=== PATIENT | female | born 1990 | race Caucasian/White ===

== ENCOUNTER 2020-11-24 12:25 | Observation (INO) | payer OTHER ==
[~2020-11-24] VITALS: Ht 157.5 cm; Wt 67.6 kg
[2020-11-24 13:06] VITALS: BP 128/81
[2020-11-24] MEDS ORDERED: LEVO150 PO (13:08)
[2020-11-24] MEDS ORDERED: PREN-217 PO (13:09)
[2020-11-24 14:02] LABS: BASOPHILS % (AUTO) 0.4 % (0.0-2.0); EOSINOPHILS % (AUTO) 0.3 % (1.0-6.0); HEMATOCRIT 34.9 % (36-46); HEMOGLOBIN 11.7 g/dL (12.0-16.0); LYMPHOCYTES # (AUTO) 1.5 K/uL (1.0-4.8); LYMPHOCYTES % (AUTO) 19.5 % (22.0-44.0); MEAN CORPUSCULAR HEMOGLOBIN 29.5 pg (26.0-34.0); MEAN CORPUSCULAR HGB CONC 33.6 G/dL (31.0-37.0); MEAN CORPUSCULAR VOLUME 88 fL (80-100); MONOCYTES # (AUTO) 0.7 K/uL (0.1-1.0); MONOCYTES % (AUTO) 8.8 % (2.0-9.0); NEUTROPHILS # (AUTO) 5.6 K/uL (1.8-7.7); PLATELET COUNT (AUTO) 179 K/uL (150-450); RED BLOOD CELL COUNT(AUTO) 3.97 MIL/uL (4.00-5.20); RED CELL DISTRIBUTION WIDTH 19.5 % (11.5-14.5)
[2020-11-24 14:16] LABS: ANION GAP 12 mmol/L (8-16); CALCIUM, TOTAL 8.3 mg/dL (8.8-10.5); CARBON DIOXIDE 20 mmol/L (22-29); CHLORIDE 105 mmol/L (98-107); CREATININE 0.81 mg/dL (0.60-1.30); GLOMERULAR FILTR. RATE CALC > 60 mL/min (>60); GLUCOSE,RANDOM 94 mg/dL (70-110); POTASSIUM 3.9 mmol/L (3.5-5.1); SODIUM SERUM 137 mmol/L (136-145); UREA NITROGEN, BLOOD 12 mg/dL (7-18)
[2020-11-24 14:21] LABS: ALANINE AMINOTRANSFERASE 15 U/L (12-78); ALBUMIN 2.4 g/dL (3.4-5.0); ALKALINE PHOSPHATASE 185 U/L (46-116); ASPARTATE AMINOTRANSFERASE 17 U/L (15-37); BILIRUBIN,TOTAL 0.2 mg/dL (0.1-1.0); TOTAL PROTEIN, SERUM 6.4 g/dL (6.4-8.2); URIC ACID 6.3 mg/dL (2.6-7.2)
[2020-11-24 15:23] LABS: CREATININE,URINE RANDOM 178.1 mg/dL (30.0-125.0)
== END 2020-11-24 16:10 | disposition home or self-care (01) ==
LOC: 4S 12:25
PROVIDERS: ADMIT Obstetrics & Gynecology; ATTEND Obstetrics & Gynecology
DX: O13.3 Gestational [pregnancy-induced] hypertension without significant proteinuria, third trimester (principal); Z3A.36 36 weeks gestation of pregnancy
CPT/HCPCS: 59025; 76805; 82570; 84156; 84550; 99219

== ENCOUNTER 2020-11-29 12:07 | Inpatient (IN) | payer OTHER ==
[~2020-11-29] VITALS: Ht 162.6 cm; Wt 68.0 kg
[~2020-11-29 12:07] MED LIST: CITRIC ACID/SODIUM CITRATE 30 ML SOLUTION UDCUP PO PRN; FentaNYL CITRATE PF 100 MCG/2 ML VIAL IVP PRN; LEVO150 PO; LIDOCAINE/PF 1% 30 ML VIAL SQ PRN; METOCLOPRAMIDE HCL 5 MG/ML 2 ML VIAL IVP PRN; OXYTOCIN 30 UNITS/LACT RINGERS 500 ML IV ONE; PREN-217 PO; RINGERS SOLUTION,LACTATED 1,000 ML IV PRN
[2020-11-29 12:59] LABS: BASOPHILS % (AUTO) 0.4 % (0.0-2.0); EOSINOPHILS % (AUTO) 0.4 % (1.0-6.0); HEMATOCRIT 37.1 % (36-46); HEMOGLOBIN 12.2 g/dL (12.0-16.0); LYMPHOCYTES # (AUTO) 1.8 K/uL (1.0-4.8); LYMPHOCYTES % (AUTO) 20.8 % (22.0-44.0); MEAN CORPUSCULAR HEMOGLOBIN 29.3 pg (26.0-34.0); MEAN CORPUSCULAR HGB CONC 32.8 G/dL (31.0-37.0); MEAN CORPUSCULAR VOLUME 89 fL (80-100); MONOCYTES # (AUTO) 0.8 K/uL (0.1-1.0); MONOCYTES % (AUTO) 9.2 % (2.0-9.0); NEUTROPHILS # (AUTO) 5.8 K/uL (1.8-7.7); NEUTROPHILS % (AUTO) 69.2 % (40.0-70.0); PLATELET COUNT (AUTO) 197 K/uL (150-450); RED BLOOD CELL COUNT(AUTO) 4.15 MIL/uL (4.00-5.20); RED CELL DISTRIBUTION WIDTH 19.3 % (11.5-14.5)
[2020-11-29 13:02] LABS: ALANINE AMINOTRANSFERASE 13 U/L (12-78); ALBUMIN 2.6 g/dL (3.4-5.0); ALKALINE PHOSPHATASE 200 U/L (46-116); ANION GAP 13 mmol/L (8-16); ASPARTATE AMINOTRANSFERASE 17 U/L (15-37); BILIRUBIN,TOTAL 0.2 mg/dL (0.1-1.0); CALCIUM, TOTAL 8.7 mg/dL (8.8-10.5); CARBON DIOXIDE 20 mmol/L (22-29); CHLORIDE 105 mmol/L (98-107); CREATININE 0.77 mg/dL (0.60-1.30); GLOMERULAR FILTR. RATE CALC > 60 mL/min (>60); GLUCOSE,RANDOM 107 mg/dL (70-110); POTASSIUM 4.1 mmol/L (3.5-5.1); SODIUM SERUM 138 mmol/L (136-145); TOTAL PROTEIN, SERUM 6.7 g/dL (6.4-8.2); UREA NITROGEN, BLOOD 13 mg/dL (7-18); URIC ACID 5.9 mg/dL (2.6-7.2)
[2020-11-29 14:34] VITALS: BP 132/82
[2020-11-29 14:52] LABS: COVID AG,FIA SOURCE NASOPHARYNGEAL
[2020-11-29] MEDS: MISOPROSTOL 50 MCG TABLET PO SCH ×2 (15:00→19:56)
[2020-11-29] MEDS ORDERED: RINGERS SOLUTION,LACTATED 1,000 ML IV SCH (15:00)
[2020-11-29] MEDS: RINGERS SOLUTION,LACTATED 1,000 ML IV SCH ×2 (15:02→19:57)
[2020-11-29] MEDS ORDERED: OXYGEN THERAPY IH SCH (20:00)
[2020-11-30] MEDS ORDERED: OXYTOCIN 30 UNITS/LACT RINGERS 500 ML IV PRN (02:15)
[2020-11-30] MEDS: RINGERS SOLUTION,LACTATED 1,000 ML IV SCH ×3 (03:30→14:58)
[2020-11-30] MEDS ORDERED: ROPIVACAINE HCL/PF 0.2% 100 ML ED ONE (09:38)
[2020-11-30] MEDS ORDERED: DiphenhydrAMINE HCL 50 MG/ML VIAL IVP PRN (09:45)
[2020-11-30] MEDS ORDERED: ONDANSETRON HCL 4 MG/2 ML VIAL IVP PRN (09:45)
[2020-11-30] MEDS ORDERED: ROPIVACAINE HCL/PF 0.2% 100 ML ED PRN (09:45)
[2020-11-30] MEDS ORDERED: AMPICILLIN SODIUM 2 GM/NS 100 ML IV ONE (11:45)
[2020-11-30] MEDS: AMPICILLIN SODIUM 1 GM/NS 50 ML IV SCH ×2 (15:48→19:38)
[2020-11-30] MEDS ORDERED: BENZOCAINE 20%/MENTHOL 56 GM SPRAY CANISTER TP PRN (20:30)
[2020-11-30] MEDS ORDERED: GLYCERIN/WITCH HAZEL LEAF 40 PADS JAR TP PRN (20:30)
[2020-11-30] MEDS ORDERED: LANOLIN 7 GM OINTMENT TP PRN (20:30)
[2020-11-30] MEDS ORDERED: ACETAMINOPHEN/CODEINE 300-30 MG TABLET PO PRN ×2 (20:30)
[2020-11-30] MEDS ORDERED: METHYLERGONOVINE MALEATE 0.2 MG/ML VIAL IM ONE (20:45)
[2020-11-30] MEDS ORDERED: MAGNESIUM HYDROXIDE SUSPENSION 30 ML UDCUP PO SCH (21:00)
[2020-11-30] MEDS ORDERED: HydrALAZINE HCL 20 MG/ML VIAL ONE (21:09)
[2020-11-30] MEDS ORDERED: HydrALAZINE HCL 20 MG/ML VIAL IVP ONE ×2 (21:15→21:55)
[2020-11-30] MEDS: IBUPROFEN 800 MG TABLET PO SCH (22:24)
[2020-11-30] MEDS ORDERED: RINGERS SOLUTION,LACTATED 1,000 ML IV SCH (23:45)
[2020-12-01] MEDS: IBUPROFEN 800 MG TABLET PO SCH ×3 (04:54→17:05)
[2020-12-01] MEDS ORDERED: LEVOTHYROXINE SODIUM 150 MCG TABLET PO SCH (06:30)
[2020-12-01] MEDS ORDERED: NIFEdipine 10 MG CAPSULE PO ONE (08:30)
[2020-12-01 08:58] LABS: BASOPHILS % (AUTO) 0.2 % (0.0-2.0); EOSINOPHILS % (AUTO) 0.1 % (1.0-6.0); HEMATOCRIT 31.9 % (36-46); HEMOGLOBIN 10.8 g/dL (12.0-16.0); LYMPHOCYTES # (AUTO) 1.9 K/uL (1.0-4.8); LYMPHOCYTES % (AUTO) 11.4 % (22.0-44.0); MEAN CORPUSCULAR HEMOGLOBIN 29.7 pg (26.0-34.0); MEAN CORPUSCULAR HGB CONC 33.9 G/dL (31.0-37.0); MEAN CORPUSCULAR VOLUME 88 fL (80-100); MONOCYTES % (AUTO) 6.1 % (2.0-9.0); NEUTROPHILS # (AUTO) 13.7 K/uL (1.8-7.7); NEUTROPHILS % (AUTO) 82.2 % (40.0-70.0); PLATELET COUNT (AUTO)-OB 163 K/uL (150-450); RED BLOOD CELL COUNT(AUTO) 3.64 MIL/uL (4.00-5.20); RED CELL DISTRIBUTION WIDTH 19.3 % (11.5-14.5)
[2020-12-01] MEDS ORDERED: FERR-89 PO (18:01)
[2020-12-01] MEDS ORDERED: IBUP-2071 PO (18:01)
[2020-12-01] MEDS ORDERED: DOCU-275 PO (18:01)
== END 2020-12-01 20:25 | disposition home or self-care (01) | DRG 807 ==
LOC: OBSVTOIN 12:07 → 4S 12:07 → UNDODISIN 12-01 18:00
PROVIDERS: ADMIT Obstetrics & Gynecology Obstetrics; ATTEND Obstetrics & Gynecology Obstetrics
PROC: 10E0XZZ Delivery of Products of Conception, External Approach (ICD-10-PCS; principal; 2020-11-30)
PROC: 10907ZC Drainage of Amniotic Fluid, Therapeutic from Products of Conception, Via Natural or Artificial Opening (ICD-10-PCS; 2020-11-30)
PROC: 0W8NXZZ Division of Female Perineum, External Approach (ICD-10-PCS; 2020-11-30)
PROC: 3E0R3BZ Introduction of Anesthetic Agent into Spinal Canal, Percutaneous Approach (ICD-10-PCS; 2020-11-30)
PROC: 00HU33Z Insertion of Infusion Device into Spinal Canal, Percutaneous Approach (ICD-10-PCS; 2020-11-30)
DX: O80 Encounter for full-term uncomplicated delivery (principal); Z37.0 Single live birth; Z3A.37 37 weeks gestation of pregnancy; Z20.822 Contact with and (suspected) exposure to COVID-19
CPT/HCPCS: 80053; 84550; 85025; 86850; 86900; 86901; 87426; A9575; J0290; J0360; J2210; J2590; J2795; J7120